=== PATIENT | female | born 1995 | race Hispanic/Latino ===

== ENCOUNTER 2019-08-31 10:42 | Outpatient (CLI) | payer OTHER ==
--- NOTE | 2019-08-31 11:31 | ULT ---
ULTRASOUND OBSTETRICAL COMPLETE: DATE: 08/31/2019 HISTORY: 24-year-old female ICD-10: "Z 34.02, encounter for supervision of normal first in second trimester. Complete anatomy, sizes and dates, and cervical length" FINDINGS: number: nair lie: Cephalic Maternal cervix: 2.5 cm. Closed. Placenta: Posterior. No previa. Amniotic fluid volume: OLEKSANDR = 11 cm heart rate: 138 bpm The following anatomy is visualized, with no evidence of anomalies: Head, cerebellum, lateral ventricles, four-chamber heart, stomach, kidneys, cord insertion, bladder, cervical spine, thoracic spine, lumbar spine, sacrum, nose and lips, upper extremities, lower extremities, and three-vessel cord. biometry: Biparietal diameter (BPD): 4.6 cm 19 w 6 d Head circumference (HC): 17.1 cm 19 w 6 d Abdominal circumference (AC): 14.6 cm 20 w 0 d Femur length (FL): 3.1 cm 19 w 4 d Average ultrasound age (AUA): 19 w 6 d Estimated date of delivery (MARK): 01/19/2020 Estimated weight (EFW): 309 g +/- 45 g IMPRESSION: 1) Live 2nd trimester intrauterine gestation. 2) Estimated gestational age of 19 weeks, 6 days 3) cephalic lie. 4) no anatomic abnormality identified.
== END 2019-08-31 10:43 | disposition home or self-care (01) ==
LOC: BICULT 10:42
PROVIDERS: ATTEND Family Medicine
DX: Z34.02 Encounter for supervision of normal first pregnancy, second trimester (principal); Z3A.19 19 weeks gestation of pregnancy
CPT/HCPCS: 76805

== ENCOUNTER 2019-11-14 09:02 | Inpatient (IN) | payer OTHER ==
[~2019-11-14 09:02] MED LIST: Glycopyrrolate 0.2 MG/ML 5 ML SYRINGE ONE; Labetalol HCl 100 MG/20 ML VIAL ONE; Lidocaine 1% PF 5 ML VIAL ONE; PROPOFOL 200 MG/20 ML VIAL ONE; Rocuronium Bromide 10 MG/ML (10ML VIAL) ONE
[2019-11-14] MEDS ORDERED: Ondansetron PF 4 MG/2 ML Vial ONE ×2 (09:14→12:01)
[2019-11-14] MEDS ORDERED: Magnesium 2 GM/50 ML BAG (IN WATER) ONE ×2 (09:30→09:59)
[2019-11-14] MEDS ORDERED: hydrALAZINE 20 MG/ML VIAL ONE (09:30)
[2019-11-14] MEDS ORDERED: Acetaminophen 500 MG TAB PO PRN (09:42)
[2019-11-14] MEDS ORDERED: Promethazine HCl 25 MG/ML VIAL IM PRN ×2 (09:42→12:11)
[2019-11-14] MEDS ORDERED: hydrALAZINE 20 MG/ML VIAL SLOW IVP PRN (09:42)
[2019-11-14] MEDS ORDERED: Ondansetron PF 4 MG/2 ML Vial IVP PRN ×3 (09:42→12:11)
[2019-11-14] MEDS ORDERED: Calcium Gluc 4.6 MEQ/10 ML (100 MG/ML) SLOW IVP PRN (09:42)
[2019-11-14] MEDS ORDERED: Betamet Acet/Betamet Na Ph 30 MG/5 ML VIAL IM SCH (09:45)
[2019-11-14] MEDS ORDERED: Lactated Ringer's 1,000 ML IV SCH (09:45)
--- NOTE | 2019-11-14 09:57 | PDOC.FPROB ---
FMR OB H&P: HPI - History of Present Illness Chief Complaint: Seixure History of Present Illness: Patient was interviewed in the ER. Depsite post ictal somnolence, she is lucid and appropriately conversant. She is 24 yo . She reports developing CARLTON yesterday which resolved, but CARLTON returned this morning,severe, went ot get meds. found patient fallen adn seixing. EMS called. 2 gams mag given in route. Seizure stopped by arrival to ER. IN Er severe range bp noted 170s over 110s on multiple checks. Patient vomited a few times in ER. Patent denies recent illness, travel. No fever or cough or SOB. hx is uncomplicated except by obesity and GERD. She doesn;t take any meds. IN the Er orderes given for additional 4grams MAg bolus. Labs, COVID ordered. Hydralazine 5mg IV ordered. FHTs in Er were normal, 140s. Primary Care Physician: Dr Roach FMR OB H&P: ROS - Review of Systems General: reports: fever/chills, weight/appetite/sleep changes, night sweats, fatigue, recent trauma, other Cardiovascular: denies: chest pain, palpitation, edema, paroxysmal nocturnal dyspnea, orthopnea, claudication, other Respiratory: denies: cough, congestion, shortness of breath, exercise intolerance, other Genitourinary (Female): denies: incontinence, dysuria, hematuria, polyuria, hesitancy, vaginal discharge, vaginal pain, vaginal bleeding, vaginal mass/sore , contractions, vaginal pressure, other FMR OB H&P: Vital Signs - Maternal Vital signs: Elevated BP and pulse noted. FMR OB H&P: Physical Exam - Physical Exam General: awake, alert and oriented (Somnolent as well) HEENT: normocephalic and atraumatic, PERRLA, EOMI Heart: RRR (Tacycardic), normal S1/S2 General: CTAB Abdomen: soft, gravid, non-tender Neurological: cranial nerves II through XII intact Psychiatric: intact recent and remote memory FMR OB H&P: A/P - Problem List (1) Eclampsia affecting first Current Visit: Yes Onset Date: ~11/14/19 Status: Acute Code(s): O15.00 - ECLAMPSIA COMPLICATING , UNSPECIFIED TRIMESTER Assessment and Plan: Mag initiated. Steroids for lung maturity, hydralazine for elevated BP. Drug screen ordered. Eclampsia labs ordered. Discussed with Dr Miles. Dr Roach notifed and is en route to evaluate and compete treatment plan. (2) Third trimester Current Visit: Yes Status: Acute Code(s): Z34.93 - ENCNTR FOR SUPRVSN OF NORMAL PREG, UNSP, THIRD TRIMESTER (3) Obesity affecting in third trimester Current Visit: Yes Status: Acute Code(s): O99.213 - OBESITY COMPLICATING , THIRD TRIMESTER (4) GERD (gastroesophageal reflux disease) Current Visit: Yes Status: Acute Code(s): K21.9 - GASTRO-ESOPHAGEAL REFLUX DISEASE WITHOUT ESOPHAGITIS Discussion: Date/Time: 11/14/19 0952
[2019-11-14] MEDS ORDERED: CEFAZOLIN 2 GM in Premix Bag 1 BAG IVPB SCH (10:00)
[2019-11-14] MEDS ORDERED: Bicitra 30 ML UDCUP PO SCH (10:00)
[2019-11-14 10:16] LABS: Hemoglobin 14.6 g/dL (12.0-16.0); Mean Corpuscular HGB CONC 33.2 g/dL (32.0-36.0); Mean Corpuscular Hemoglobin 29.5 pg (27.0-31.0); Mean Platelet Volume 12.6 fL (7.4-10.4); Platelet Count 124 thou/uL (130-400); Red Blood Cell (RBC) Count 4.93 mill/uL (4.20-5.40); White Blood Cell (WBC) Count 17.8 thou/uL (4.8-10.8)
[2019-11-14] MEDS ORDERED: Betamet Acet/Betamet Na Ph 30 MG/5 ML VIAL ONE (10:28)
[2019-11-14 10:31] LABS: #Basophils 0.1 thou/uL (0.0-0.2); #Eosinphils 0.1 thou/uL (0.0-0.7); #Lymphocytes 2.2 thou/uL (1.20-3.40); #Monocytes 0.7 thou/uL (0.11-0.59); #Neutrophils 14.8 thou/uL (1.40-6.50); %Basophils 0.3 % (0.0-1.0); %Eosinophils 0.3 % (0.0-10.0); %Lymphocytes 12.6 % (21.0-51.0); %Monocytes 3.6 % (0.0-10.0); %Neutrophils 83.2 % (42.0-75.0); Large Platelets MODERATE; MDiff Complete? YES; Platelet Morphology Comment Appears Decreased; Polychromasia SLIGHT = 2-3 cells (100X) (0-2/hpf)
[2019-11-14] MEDS ORDERED: Magnesium Sulfate 20 gm/500 ml 20 GM/500 ML BAG ONE (10:33)
[2019-11-14 10:34] LABS: ALT (SGPT) 39 U/L (8-55); AST (SGOT) 42 U/L (5-34); Albumin 2.9 g/dL (3.5-5.0); Alkaline Phosphatase 245 U/L (40-110); Anion Gap 17 mmol/L (10-20); BUN (Urea Nitrogen) 10 mg/dL (7.0-18.7); Bilirubin, Total 0.3 mg/dL (0.2-1.2); Calc. Creatinine Clearance 0 mL/min (70-130); Calcium 9.2 mg/dL (7.8-10.44); Carbon Dioxide 15 mmol/L (22-29); Chloride 109 mmol/L (98-107); Estimated GFR-MDRD Greater than 90; Globulin 3.2 g/dL (2.4-3.5); Glucose 96 mg/dL (70-105); Potassium 3.8 mmol/L (3.5-5.1); Protein, Total 6.1 g/dL (6.0-8.3); Sodium 137 mmol/L (136-145)
[2019-11-14 10:36] LABS: Bilirubin Negative (Negative); Blood, Urine 2+ (Negative); Clarity Turbid (Clear); Glucose, Urine (Dipstick) Normal (Negative); Leukocyte Negative Leu/uL (Negative); Nitrite Negative (Negative); Protein, Urine (Dipstick) Greater than 600 mg/dL (Neg-Trace); RBC/HPF 0-3 HPF (0-3); Urobilinogen Normal mg/dL (Less than 2)
[2019-11-14] MEDS ORDERED: Rocuronium Bromide 50 MG/5 ML VIAL ONE (10:38)
[2019-11-14] MEDS ORDERED: PROPOFOL 20 ML ONE (10:38)
[2019-11-14] MEDS ORDERED: Oxytocin 10 UNITS/ML VIAL ONE ×2 (10:38→11:46)
[2019-11-14] MEDS ORDERED: Succinylcholine Chloride 20 MG/ML 10 ml SYRINGE FS ONE (10:38)
[2019-11-14 10:43] LABS: Bacteria/HPF None Seen HPF (None Seen)
[2019-11-14] MEDS ORDERED: Fentanyl 100 MCG/2 ML VIAL ONE (10:44)
[2019-11-14] MEDS ORDERED: PHENYLEPHRINE-NS 100 MCG/ML 10 ML SYRINGE ONE (10:44)
[2019-11-14 10:51] LABS: HBSAg Index 0.16 S/CO (0-0.99); Hep B Surf Ag Non-Reactive S/CO (NonReactive); Syphilis Antibody Nonreactive (Nonreactive); Syphilis Antibody Index 0.05 S/CO (<1.00 Non-Reactive)
[2019-11-14] MEDS ORDERED: Meperidine HCl/PF 25 MG/ML VIAL IM PRN (10:52)
[2019-11-14] MEDS ORDERED: NS / Oxytocin 40 units/1000ml 1,000 ML IV SCH (10:52)
[2019-11-14] MEDS ORDERED: diphenhydrAMINE 25 MG CAP PO PRN ×2 (10:52→12:11)
[2019-11-14] MEDS ORDERED: HYDROcodone/Acetaminophen 5/325 mg Tablet PO PRN ×2 (10:52)
[2019-11-14] MEDS ORDERED: Bisacodyl 10 MG SUPP PR PRN (10:52)
[2019-11-14] MEDS ORDERED: Lanolin Ointment 7 GM TUBE TOP PRN (10:52)
[2019-11-14] MEDS ORDERED: Calcium Gluconate 4.6 MEQ in Sodium Chloride 0.9% 100 ML IVPB PRN (10:52)
[2019-11-14] MEDS ORDERED: Simethicone Chewable 80 MG TAB PO PRN (10:52)
[2019-11-14] MEDS ORDERED: Meperidine HCl/PF 25 MG/ML VIAL SLOW IVP PRN (10:57)
[2019-11-14] MEDS ORDERED: L&D-Morphine 4 MG/ML VIAL SLOW IVP PRN (10:57)
[2019-11-14] MEDS ORDERED: Ondansetron HCl/PF 4 MG/2 ML Vial IVP PRN (10:57)
[2019-11-14] MEDS ORDERED: HYDROmorphone 2 MG/ML VIAL SLOW IVP PRN (10:57)
[2019-11-14] MEDS ORDERED: Ketorolac Tromethamine 30 MG/ML VIAL IVP SCH (11:00)
[2019-11-14] MEDS ORDERED: Lidocaine 2% MPF 10 ML AMP (For Epidural Use) ONE (11:29)
[2019-11-14] MEDS ORDERED: Carboprost 250 MCG/ML AMP ONE (11:47)
[2019-11-14] MEDS ORDERED: Labetalol HCl 100 MG/20 ML VIAL ONE (11:54)
[2019-11-14] MEDS ORDERED: Glycopyrrolate 0.2 MG/ML 5 ML SYRINGE ONE (12:00)
[2019-11-14 12:04] VITALS: BMI 39.2
[2019-11-14] MEDS ORDERED: diphenhydrAMINE 50 MG/ML VIAL IVP PRN (12:11)
[2019-11-14] MEDS ORDERED: diphenhydrAMINE 50 MG/ML VIAL IM PRN (12:11)
[2019-11-14] MEDS ORDERED: Naloxone HCl 0.4 mg/ml Vial IV PRN (12:11)
[2019-11-14] MEDS ORDERED: Zolpidem Tartrate 5 MG TAB PO PRN (12:11)
[2019-11-14] MEDS ORDERED: HYDROmorphone 10 mg/100 ml CADD IVPB PRN ×3 (12:11→15:58)
[2019-11-14] MEDS ORDERED: SUGAMMADEX SODIUM 500 MG/5 ML VIAL ONE (12:13)
[2019-11-14] MEDS ORDERED: Communication Order-Pharmacy FS SCH (12:15)
[2019-11-14] MEDS ORDERED: Diphenoxylate HCl/Atropine Tablet PO PRN (12:38)
[2019-11-14] MEDS ORDERED: Fentanyl 4 mcg/Bup 0.1% Cadd 100 ML ONE (14:13)
[2019-11-14] MEDS: hydrALAZINE 20 MG/ML VIAL SLOW IVP PRN (14:20)
--- NOTE | 2019-11-14 15:17 | OP ---
DATE OF PROCEDURE: 11/14/2019 RESIDENT SURGEON: Dr. David Guerra. CO-SURGEON: Pepe Roach MD. PROCEDURE PERFORMED: Primary low-transverse section. PREOPERATIVE DIAGNOSES: 1. Eclampsia. 2. gestational age. 3. Distant from delivery. POSTOPERATIVE DIAGNOSES: 1. Eclampsia. 2. gestational age. 3. Distant from delivery. ANESTHESIA: General. INDICATIONS: The patient is a 24-year-old, G1, P0, now 1 female at 30 weeks and 6 days gestation by first-trimester ultrasound, who presented by EMS for an eclamptic seizure. The patient was noted to have multiple elevated pressures, greater than 160/110. She was given 2 g of magnesium sulfate en route by EMS, given another 4 g loading dose in the ER, and continued on 2 g of magnesium sulfate per hour thereafter. heart tones were in the 140s and showed moderate variability after the patient arrived. Additionally, the patient was given Celestone x1 prior to decision to deliver via primary section. PROCEDURE IN DETAIL: Risks, benefits, and alternatives were explained to the patient. She gave informed consent. Preoperative antibiotics included Ancef 2 g IV. The patient was taken to the operating room. General anesthesia was initiated. She was placed in the supine position in left tilt, prepped and draped in the usual sterile fashion. A Pfannenstiel incision was made with a scalpel down to the level of fascia, which was sharply nicked. The fascial cut was extended bilaterally with the scalpel. Inferior and superior edges of the cut fascial edges were elevated with Petey clamps and the underlying rectus muscles were sharply and bluntly dissected free. The recti were divided digitally, retracted manually. The peritoneum was entered bluntly and retracted manually. A bladder blade was placed. A low-transverse score was then made with the scalpel and the uterus was entered in the midline with the scalpel. Clear fluid was seen. The hysterotomy was extended manually. The was noted to be vertex and easily delivered by fundal pressure. Delayed cord clamping was performed. Mouth and nares were bulb suctioned. The cord was then clamped and cut and grossly normal female infant was handed to the awaiting nurse. Cord blood was obtained. Placenta was delivered spontaneously and found to be intact with 3-vessel cord and sent to the lab for pathology review. The uterus was then externalized and the endometrium was curetted with dry lap. The bladder blade was replaced and the uterus was closed with a running locking 1 Monocryl suture followed by two [id number] 0 Vicryl stitches. Following this, hemostasis was noted. The abdomen was then irrigated with saline and suctioned free of clots. Following this, Seprafilm was placed over the anterior hysterotomy site alongside the anterior portion of the uterus, after which the uterus was internalized and hysterotomy was again noted to be hemostatic. The peritoneum was then closed and reapproximated with 3-0 Vicryl in a running fashion. The fascia was then closed with a running nonlocking 0 PDS suture. The subcutaneous tissue was irrigated and bleeders were cauterized with Bovie cauterization. The subcutaneous layer was approximated with 3-0 Vicryl. The skin was then approximated with vinnie and a pressure dressing was placed. All counts were correct. The patient tolerated procedure well and was taken to recovery room in stable condition. ESTIMATED BLOOD LOSS: 650 mL. QUANTITATIVE BLOOD LOSS: Pending. COMPLICATIONS: None. SPECIMENS: Cord blood sent to lab for blood type. FINDINGS: 1. Grossly normal female with Apgars pending at this time. 2. Grossly normal placenta, which was sent to the lab for further review. DRAINS: Cm to gravity, draining clear urine. Job ID: [id number] [facility]
[2019-11-14] MEDS: Ibuprofen 800 MG TAB PO SCH (17:58)
[2019-11-14] MEDS: Magnesium Sulfate 20 gm/500 ml 20 GM/500 ML BAG IVPB SCH (20:26)
[2019-11-14] MEDS: Ferrous Sulfate 325 MG TAB PO SCH (21:36)
[2019-11-14] MEDS: Docusate Calcium (SURFAK) 240 MG CAP PO SCH (21:36)
[2019-11-15] MEDS: Magnesium Sulfate 20 gm/500 ml 20 GM/500 ML BAG IVPB SCH (06:29)
[2019-11-15] MEDS ORDERED: Adacel (T-DAP) 0.5 ML SYRINGE IM ONE (09:00)
[2019-11-15 09:39] LABS: Hemoglobin 13.1 g/dL (12.0-16.0); Mean Corpuscular HGB CONC 33.7 g/dL (32.0-36.0); Mean Corpuscular Hemoglobin 29.9 pg (27.0-31.0); Mean Corpuscular Volume 88.9 fL (78.0-98.0); Mean Platelet Volume 11.5 fL (7.4-10.4); Platelet Count 144 thou/uL (130-400); RBC Distribution Width 12.1 % (11.5-14.5); Red Blood Cell (RBC) Count 4.39 mill/uL (4.20-5.40); White Blood Cell (WBC) Count 24.5 thou/uL (4.8-10.8)
[2019-11-15] MEDS: cloNIDine 0.1 MG TAB PO PRN ×3 (12:48→18:50)
[2019-11-15] MEDS: HYDROcodone/Acetaminophen 5/325 mg Tablet PO PRN (14:08)
[2019-11-15] MEDS: Ibuprofen 800 MG TAB PO SCH ×3 (14:09→18:57)
[2019-11-15] MEDS: Docusate Calcium (SURFAK) 240 MG CAP PO SCH ×2 (17:21→20:37)
[2019-11-15] MEDS: Ferrous Sulfate 325 MG TAB PO SCH ×2 (17:21→21:10)
[2019-11-15] MEDS: Prenatal Vitamin 1 TAB PO SCH (17:22)
[2019-11-15] MEDS ORDERED: cloNIDine 0.1 MG TAB PO SCH (20:45)
[2019-11-15] MEDS ORDERED: hydrALAZINE 20 MG/ML VIAL IM PRN (21:44)
[2019-11-16] MEDS: Docusate Calcium (SURFAK) 240 MG CAP PO SCH ×2 (08:13→20:53)
[2019-11-16] MEDS: Prenatal Vitamin 1 TAB PO SCH ×2 (08:13→20:53)
[2019-11-16] MEDS: HYDROcodone/Acetaminophen 5/325 mg Tablet PO PRN ×3 (08:40→20:53)
[2019-11-16] MEDS: Ferrous Sulfate 325 MG TAB PO SCH ×2 (09:52→20:53)
[2019-11-16] MEDS: Losartan/Hydrochlorothiazide 100 mg/25 mg Tablet PO SCH (10:43)
[2019-11-16] MEDS: cloNIDine 0.1 MG TAB PO PRN (12:34)
[2019-11-16 18:07] LABS: Bacteria/HPF None Seen HPF (None Seen); Bilirubin Negative (Negative); Blood, Urine 1+ (Negative); Clarity Clear (Clear); Glucose, Urine (Dipstick) Normal (Negative); Leukocyte Negative Leu/uL (Negative); Nitrite Negative (Negative); Protein, Urine (Dipstick) 100 mg/dL (Neg-Trace); Squamous Epithelial 0-3 HPF (0-3); Urobilinogen Normal mg/dL (Less than 2); WBC/HPF 0-3 HPF (0-3)
[2019-11-16] MEDS: Ibuprofen 800 MG TAB PO SCH (18:45)
[2019-11-17] MEDS: cloNIDine 0.1 MG TAB PO PRN ×3 (05:17→17:07)
[2019-11-17] MEDS: Ibuprofen 800 MG TAB PO SCH ×4 (05:18→21:25)
[2019-11-17] MEDS: hydrALAZINE 20 MG/ML VIAL SLOW IVP PRN (06:26)
[2019-11-17] MEDS: Docusate Calcium (SURFAK) 240 MG CAP PO SCH ×2 (08:34→21:25)
[2019-11-17] MEDS: Prenatal Vitamin 1 TAB PO SCH (08:34)
[2019-11-17] MEDS: Ferrous Sulfate 325 MG TAB PO SCH ×2 (08:35→21:24)
[2019-11-17] MEDS: Losartan/Hydrochlorothiazide 100 mg/25 mg Tablet PO SCH (08:35)
[2019-11-17] MEDS: HYDROcodone/Acetaminophen 5/325 mg Tablet PO PRN (08:41)
[2019-11-17] MEDS ORDERED: Amlodipine 10 MG TAB PO SCH (17:30)
[2019-11-17] MEDS ORDERED: Labetalol 100 MG TAB PO SCH (21:00)
[2019-11-18] MEDS: Ibuprofen 800 MG TAB PO SCH ×3 (05:35→21:59)
[2019-11-18] MEDS: Losartan/Hydrochlorothiazide 100 mg/25 mg Tablet PO SCH (08:40)
[2019-11-18] MEDS: Prenatal Vitamin 1 TAB PO SCH (08:40)
[2019-11-18] MEDS: Docusate Calcium (SURFAK) 240 MG CAP PO SCH ×2 (08:40→21:59)
[2019-11-18] MEDS: Amlodipine 10 MG TAB PO SCH (08:40)
[2019-11-18] MEDS: Ferrous Sulfate 325 MG TAB PO SCH ×2 (08:40→19:09)
[2019-11-18] MEDS: cloNIDine 0.1 MG TAB PO PRN (17:03)
[2019-11-19] MEDS: cloNIDine 0.1 MG TAB PO PRN (04:41)
[2019-11-19] MEDS: Ibuprofen 800 MG TAB PO SCH (05:58)
[2019-11-19 07:54] VITALS: TEMP 98.4
[2019-11-19] MEDS: Prenatal Vitamin 1 TAB PO SCH (09:41)
[2019-11-19] MEDS: Docusate Calcium (SURFAK) 240 MG CAP PO SCH (09:42)
[2019-11-19] MEDS: Losartan/Hydrochlorothiazide 100 mg/25 mg Tablet PO SCH (09:42)
[2019-11-19] MEDS: Amlodipine 10 MG TAB PO SCH (09:42)
[2019-11-19 11:36] VITALS: BP 133/86
== END 2019-11-19 15:58 | disposition home or self-care (01) | DRG 788 ==
LOC: ERS 09:02 → UNDOADMIN 09:31 → L&D-LIB 09:31 → 3SE 11-15 18:12 → L&D 11-16 20:38 → 3SE 11-17 09:37
PROVIDERS: ADMIT Family Medicine; ATTEND Family Medicine
PROC: 10D00Z1 Extraction of Products of Conception, Low, Open Approach (ICD-10-PCS; principal; 2019-11-14)
DX: O15.1 Eclampsia complicating labor (principal); E66.9 Obesity, unspecified; K21.9 Gastro-esophageal reflux disease without esophagitis; Z3A.30 30 weeks gestation of pregnancy; O99.62 Diseases of the digestive system complicating childbirth; O99.214 Obesity complicating childbirth; Z37.0 Single live birth; Z20.828 Contact with and (suspected) exposure to other viral communicable diseases
CPT/HCPCS: 36415; 51701; 51702; 80053; 81003; 81015; 83735; 85025; 85027; 86780; 86850; 86900; 86901; 87340; 87635; 88307; 93005; 96365; 96375; J0360; J0690; J0702; J2001; J2405; J2590; J2704; J3010; J3475; J3490; U0002

== ENCOUNTER 2022-04-05 18:45 | Emergency (ER) | payer OTHER ==
[2022-04-05 19:39] LABS: #Basophils 0.1 thou/uL (0.0-0.2); #Eosinphils 0.2 thou/uL (0.0-0.7); #Lymphocytes 3.3 thou/uL (1.20-3.40); #Monocytes 0.9 thou/uL (0.11-0.59); #Neutrophils 7.3 thou/uL (1.40-6.50); %Basophils 0.5 % (0.0-1.0); %Eosinophils 1.9 % (0.0-10.0); %Lymphocytes 27.8 % (21.0-51.0); %Monocytes 7.2 % (0.0-10.0); %Neutrophils 62.5 % (42.0-75.0); Hemoglobin 13.6 g/dL (12.0-16.0); Mean Corpuscular HGB CONC 34.6 g/dL (32.0-36.0); Mean Corpuscular Hemoglobin 30.3 pg (27.0-31.0); Mean Corpuscular Volume 87.5 fL (78.0-98.0); Platelet Count 206 thou/uL (130-400); White Blood Cell (WBC) Count 11.7 thou/uL (4.8-10.8)
[2022-04-05 19:57] LABS: ALT (SGPT) 74 U/L (8-55); AST (SGOT) 46 U/L (5-34); Albumin 4.1 g/dL (3.5-5.0); Alkaline Phosphatase 91 U/L (40-110); Anion Gap 16 mmol/L (10-20); BUN (Urea Nitrogen) 5 mg/dL (7.0-18.7); Bilirubin, Total 0.6 mg/dL (0.2-1.2); CK (CPK) 91 U/L (29-168); Calc. Creatinine Clearance 0 mL/min (70-130); Calcium 8.9 mg/dL (7.8-10.44); Carbon Dioxide 22 mmol/L (22-29); Chloride 105 mmol/L (98-107); Estimated GFR 123; Globulin 2.9 g/dL (2.4-3.5); Glucose 99 mg/dL (70-105); Potassium 3.7 mmol/L (3.5-5.1); Sodium 139 mmol/L (136-145)
== END 2022-04-05 20:45 | disposition home or self-care (01) ==
LOC: ERS 18:45
DX: R07.89 Other chest pain (principal)
CPT/HCPCS: 36415; 71045; 80053; 82550; 84443; 84484; 85025; 93005